=== PATIENT | male | born 1995 | race Caucasian/White ===

== ENCOUNTER 2020-09-15 18:57 | Emergency (ER) | payer OTHER ==
[~2020-09-15] VITALS: Ht 185.4 cm; Wt 72.6 kg
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
[2020-09-15] MEDS ORDERED: oxyCODONE/APAP (5/325 MG) 1 UDTAB TABLET PO ONE (20:00)
[2020-09-15] MEDS ORDERED: ONDANSETRON 4 MG TAB.RAPDIS PO ONE (20:00)
[2020-09-15] MEDS ORDERED: oxyCODONE/APAP (5/325 MG) 1 UDTAB TABLET ONE (20:07)
[2020-09-15] MEDS ORDERED: ONDANSETRON 4 MG TAB.RAPDIS ONE (20:07)
[2020-09-15] MEDS ORDERED: BACI3.5O23 OP (20:40)
[2020-09-15] MEDS ORDERED: IBUP-1955 PO (20:40)
[2020-09-15] MEDS ORDERED: HYDR-4303 PO (20:40)
[2020-09-15 20:48] VITALS: BP 155/79
--- NOTE | 2020-09-15 20:48 | NUR ---
PT is medically stable for d/c per md . Patient discharged to home in stable condition. Rx and Written and verbal after care instructions given. Patient verbalizes understanding of instruction.
== END 2020-09-15 20:49 | disposition home or self-care (01) ==
LOC: ER 18:57
DX: S80.812A Abrasion, left lower leg, initial encounter (principal); M25.552 Pain in left hip; M79.662 Pain in left lower leg; J45.909 Unspecified asthma, uncomplicated; Z79.899 Other long term (current) drug therapy; V49.49XA Driver injured in collision with other motor vehicles in traffic accident, initial encounter; Y93.89 Activity, other specified; Y92.488 Other paved roadways as the place of occurrence of the external cause; Y99.0 Civilian activity done for income or pay
CPT/HCPCS: 73503; 73590; 99284; Q0162; 73502